=== PATIENT | male | born 1995 | race Asian ===

== ENCOUNTER 2019-01-24 08:23 | Emergency (ER) | payer OTHER ==
--- NOTE | 2019-01-24 10:48 | RAD ---
PA AND LATERAL CHEST: HISTORY: Chest pain. FINDINGS: The cardiomediastinum is normal. The lungs are well expanded and clear. The bony thorax is normal. IMPRESSION: Normal examination. POS: [facility]
== END 2019-01-24 11:15 | disposition home or self-care (01) ==
LOC: ERS 08:23
DX: R07.9 Chest pain, unspecified (principal); R11.0 Nausea; F32.9 Major depressive disorder, single episode, unspecified; Z79.899 Other long term (current) drug therapy
CPT/HCPCS: 71046; 93005

== ENCOUNTER 2019-03-23 18:45 | Emergency (ER) | payer SELFPAY ==
--- NOTE | 2019-03-23 19:19 | RAD ---
XR Chest Pa Lat STANDARD HISTORY: Cough COMPARISON: 01/24/2019 FINDINGS: The heart size is normal. The lungs are well expanded without focal areas of consolidation, pneumothorax or pleural effusions. IMPRESSION: No radiographic evidence of acute cardiopulmonary process.
[2019-03-23 19:27] LABS: #Basophils 0.1 thou/uL (0.0-0.2); #Eosinphils 0.2 thou/uL (0.0-0.7); #Lymphocytes 3.1 thou/uL (1.20-3.40); #Monocytes 0.8 thou/uL (0.11-0.59); #Neutrophils 5.5 thou/uL (1.40-6.50); %Basophils 1.1 % (0.0-1.0); %Eosinophils 1.9 % (0.0-10.0); %Lymphocytes 32.2 % (21.0-51.0); %Monocytes 8.7 % (0.0-10.0); %Neutrophils 56.2 % (42.0-75.0); Hemoglobin 15.2 g/dL (14.0-18.0); Mean Corpuscular HGB CONC 33.6 g/dL (32.0-36.0); Mean Corpuscular Hemoglobin 29.9 pg (27.0-31.0); Mean Platelet Volume 7.6 fL (7.4-10.4); Platelet Count 274 thou/uL (130-400); White Blood Cell (WBC) Count 9.7 thou/uL (4.8-10.8)
[2019-03-23 19:48] LABS: ALT (SGPT) 16 U/L (8-55); AST (SGOT) 22 U/L (5-34); Albumin 4.4 g/dL (3.5-5.0); Alkaline Phosphatase 77 U/L (40-110); Anion Gap 13 mmol/L (10-20); BUN (Urea Nitrogen) 6 mg/dL (8.9-20.6); Bilirubin, Total 0.5 mg/dL (0.2-1.2); Calc. Creatinine Clearance 0 mL/min (70-130); Calcium 9.5 mg/dL (7.8-10.44); Carbon Dioxide 28 mmol/L (22-29); Chloride 100 mmol/L (98-107); Estimated GFR-MDRD Greater than 90; Globulin 3.6 g/dL (2.4-3.5); Glucose 106 mg/dL (70-105); Potassium 3.8 mmol/L (3.5-5.1); Sodium 137 mmol/L (136-145)
== END 2019-03-23 21:54 | disposition home or self-care (01) ==
LOC: ERS 18:45
DX: B34.9 Viral infection, unspecified (principal); R11.2 Nausea with vomiting, unspecified; F32.9 Major depressive disorder, single episode, unspecified; Z79.899 Other long term (current) drug therapy
CPT/HCPCS: 36415; 71046; 80053; 85025; 87804; 96360

== ENCOUNTER 2020-08-09 04:52 | Emergency (ER) | payer MEDICARE, SELFPAY | END 2020-08-09 05:31 | disposition home or self-care (01) | LOC: ERS 04:52 | DX: R50.83 Postvaccination fever (principal); T50.B95A Adverse effect of other viral vaccines, initial encounter; R42 Dizziness and giddiness; M79.10 Myalgia, unspecified site; M79.621 Pain in right upper arm; Z79.899 Other long term (current) drug therapy | CPT/HCPCS: 99283 ==

== ENCOUNTER 2020-12-18 13:22 | Emergency (ER) | payer MEDICARE ==
[2020-12-18] MEDS ORDERED: Ibuprofen 800 MG TAB ONE (14:36)
[2020-12-18 16:53] LABS: #Basophils 0.1 thou/uL (0.0-0.2); #Lymphocytes 2.1 thou/uL (1.20-3.40); #Monocytes 0.8 thou/uL (0.11-0.59); #Neutrophils 9.7 thou/uL (1.40-6.50); %Basophils 0.4 % (0.0-1.0); %Eosinophils 0.2 % (0.0-10.0); %Lymphocytes 16.4 % (21.0-51.0); %Monocytes 6.6 % (0.0-10.0); %Neutrophils 76.4 % (42.0-75.0); Hemoglobin 15.7 g/dL (14.0-18.0); Mean Corpuscular HGB CONC 33.8 g/dL (32.0-36.0); Mean Corpuscular Hemoglobin 30.7 pg (27.0-31.0); Mean Corpuscular Volume 90.8 fL (78.0-98.0); Mean Platelet Volume 7.9 fL (7.4-10.4); Platelet Count 212 thou/uL (130-400); RBC Distribution Width 12.4 % (11.5-14.5); Red Blood Cell (RBC) Count 5.13 mill/uL (4.70-6.10); White Blood Cell (WBC) Count 12.7 thou/uL (4.8-10.8)
[2020-12-18 17:04] LABS: ALT (SGPT) 19 U/L (8-55); AST (SGOT) 21 U/L (5-34); Albumin 4.3 g/dL (3.5-5.0); Alkaline Phosphatase 67 U/L (40-110); Anion Gap 15 mmol/L (10-20); BUN (Urea Nitrogen) 9 mg/dL (8.9-20.6); Bilirubin, Total 0.7 mg/dL (0.2-1.2); Calc. Creatinine Clearance 0 mL/min (70-130); Calcium 9.6 mg/dL (7.8-10.44); Carbon Dioxide 24 mmol/L (22-29); Chloride 104 mmol/L (98-107); Globulin 3.3 g/dL (2.4-3.5); Glucose 98 mg/dL (70-105); Protein, Total 7.6 g/dL (6.0-8.3); Sodium 139 mmol/L (136-145)
[2020-12-19 00:07] LABS: SARS-CoV-2 PCR by NAA Not Detected (NotDetected)
== END 2020-12-18 17:12 | disposition home or self-care (01) ==
LOC: ERS 13:22
DX: M79.605 Pain in left leg (principal); M79.604 Pain in right leg; J02.9 Acute pharyngitis, unspecified; R07.9 Chest pain, unspecified; R11.0 Nausea; R50.9 Fever, unspecified; R05.9 Cough, unspecified; R42 Dizziness and giddiness; R00.0 Tachycardia, unspecified; Z20.822 Contact with and (suspected) exposure to COVID-19; Z79.899 Other long term (current) drug therapy
CPT/HCPCS: 71045; 80053; 84484; 85025; 93005; U0003; U0005; 36415

== ENCOUNTER 2021-04-16 17:44 | Emergency (ER) | payer MEDICARE ==
[2021-04-16] MEDS ORDERED: Acetaminophen 500 MG TAB ONE (18:11)
[2021-04-16] MEDS ORDERED: Ibuprofen 200 MG TAB ONE (18:11)
[2021-04-16 23:56] LABS: SARS-CoV-2 PCR by NAA Not Detected (NotDetected)
== END 2021-04-16 19:19 | disposition home or self-care (01) ==
LOC: ERS 17:44
DX: J11.1 Influenza due to unidentified influenza virus with other respiratory manifestations (principal); Z20.822 Contact with and (suspected) exposure to COVID-19
CPT/HCPCS: 71045; 87804 ×2; U0003; U0005; 93005